=== PATIENT | female | born 1950 | race African-American/Black ===

== ENCOUNTER 2016-12-12 10:17 | Emergency (ER) | payer OTHER ==
[~2016-12-12] VITALS: Ht 167.6 cm; Wt 73.0 kg
[~2016-12-12 10:17] MED LIST: MOBIC7.5 M1 PO; TYLENOL WITH C1 EACH PO
[2016-12-12] MEDS ORDERED: RIFAMPIN300 M1 PO (10:58)
--- NOTE | 2016-12-12 12:22 | ED UPPER/LOWER EXTREMITY COMPL ---
See Addendum History of Present Illness General Chief Complaint: General Adult Stated Complaint: SENT BY [facility] FOR EVAL Source: patient, old records Exam Limitations: no limitations Vital Signs & Intake/Output Vital Signs & Intake/Output Vital Signs Date Time Temp Pulse Resp B/P Pulse O2 O2 Flow FiO2 Ox Delivery Rate 12/12 1339 97.1 65 16 125/73 97 Room Air 12/12 1026 97.1 81 14 122/75 98 Room Air Allergies Coded Allergies: No Known Allergies (10/06/16) Reconcile Medications Ibuprofen 600 MG TABLET 1 TAB PO TID PRN pain/inflammation with food Rifampin 300 MG CAPSULE 2 CAP PO DAILY UNKNOWN (Reported) Triage Note: 65 Y/O FEMALE SENT BY [facility] FOR EVAL OF L KNEE SWELLING. PT STATES SHE HAS ARTHRITIS AND THIS IS THE SECOND TIME SHE HAS BEEN EVAL'D FOR SAME. ACCORDING TO NOTE FROM [facility], "PLEASE ASPIRATE LEFT KNEE FOR C + S AND TB CULTURES ... PT ON RIFAMPIN FOR LATENT TB" (NOTE PLACED WITH CHART). PT STATES SHE HAS HAD PAIN AND SWELLING X WEEKS Triage Nurses Notes Reviewed? yes HPI: 65-year-old female sent in from the [facility] after seeing the "arthritis doctor" for aspiration of the left knee. She is having left knee pain for many months, she has known history of osteoarthritis, I have seen her in the past for this as well he reviewed her previous records. In October she was seen here twice, first time today and x-ray which revealed the os to arthritis in place anti-inflammatory medication second time she was seen by me on October 12 and I aspirated her knee and give her intra-articular cortisone injection of Kenalog. She states that she felt very well for approximately 3 weeks and the pain and swelling started to return. 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 She was seen today by the [facility] and they sent her over here for a repeat knee aspiration, a message from them in the chart states that they wanted a TB culture, AFB, cell count. 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 Patient is having aching pain which is moderate, it is related to activity. She has minimal pain at rest. She denies any fever or flulike illness. There is no recent trauma to the knee. (JOSE PIERRE) Past History Travel History Traveled to [place] past 21 day No Medical History Any Pertinent Medical History? see below for history Neurological: NONE EENT: NONE Cardiovascular: ? 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 No (JOSE PIERRE) Review of Systems Review of Systems Constitutional: Reports: see HPI. EENTM: Reports: no symptoms. Respiratory: Reports: no symptoms. Cardiovascular: Reports: no symptoms. Gastrointestinal/Abdominal: Reports: no symptoms. Genitourinary: Reports: no symptoms. Musculoskeletal: Reports: see HPI. Skin: Reports: no symptoms. Neurological/Psychological: Reports: no symptoms. Hematologic/Endocrine: Reports: no symptoms. Immunological: Reports: no symptoms. All Other Systems: Reviewed and Negative (JOSE PIERRE) Physical Exam Physical Exam General Appearance: well developed/nourished Comments: Well-developed well-nourished no apparent distress. HEENT: Atraumatic, extraocular motion intact Neck: Supple, no lymphadenopathy Back: Nontender Respiratory: No respiratory distress Extremities: No edema, full range of motion Neuro: Alert and oriented x3 Psych: Mood affect normal, normal memory normal judgment. Skin: Warm and dry, no rash on exposed skin Left knee, moderate joint effusion, no warmth no erythema. Mild global tenderness. Range of motion is full with pain on full flexion. No skin surface changes. No instability. (JOSE PIERRE) Progress Differential Diagnosis: cellulitis, fracture, gout, septic arthritis Plan of Care: Orders Procedure Date/time Status Regular Diet 12/12 D Active CULTURE,BODY FLUID 12/12 1119 Active AFB WITH SMEAR 12/12 1119 Active SYNOVIAL FLUID CELL COUNT 12/12 1119 Complete Laboratory Tests 12/12/16 1156: Lymphocytes 43, % Normal PMNs 22, Fluid WBC 529 H, Fld Mesothelial Cells , Fld Total RBCs Counted 99 H Microbiology 12/12 1156 BODY FLUID: AFB Culture with PCR Identification - RECD 12/12 1156 BODY FLUID: AFB Smear Concentration - RECD 12/12 1156 BODY FLUID: Body Fluid Culture - RECD 12/12 1156 BODY FLUID: Gram Stain - RECD Comments: Reviewed results of the aspirate with patient. I do not feel as though there is an infection, her symptoms are typical of osteoarthritis. She has an appointment in 1 week's time to follow-up with orthopedist at [facility] to review the results of her cultures. (JOSE PIERRE) Departure Departure Disposition: HOME OR SELF CARE Condition: Stable Clinical Impression Primary Impression: Arthritis of knee, left Secondary Impressions: Knee effusion, left Referrals: TRISHA ROOT APRN (PCP/Family) Additional Instructions: take motrin for your knee pain and inflammation. rest, ice, tom wrap follow up with your orthopedist in 1 week as scheduled. Departure Forms: Customer Survey General Discharge Information Prescriptions: Current Visit Scripts Ibuprofen 1 TAB PO TID PRN pain/inflammation #30 TAB with food (JOSE PIERRE) PA/MATCH MARKER Co-Sign Statement Statement: ED Attending supervision documentation- [] I saw and evaluated the patient. I have also reviewed all the pertinent lab results and diagnostic results. I agree with the findings and the plan of care as documented in the PA's/MATCH MARKER's documentation. [X] I have reviewed the ED Record and agree with the PA's/MATCH MARKER's documentation. [] Additions or exceptions (if any) to the PAs/MATCH MARKER's note and plan are summarized below: [] (SHANIKA MATTSON DO) Procedures Comments Comments: Verbal consent was obtained, left knee was prepped and draped in a sterile fashion, ultrasound guidance was used for direct visualization. 3 mL of 1% plain lidocaine was instilled in the left superior lateral portal region for anesthetic purposes. An 18-gauge needle was then used to enter the suprapatellar pouch and under direct visualization and with ultrasound knee aspiration was performed. Approximately 35 mL of straw-colored clear fluid was aspirated. Patient tolerated well without complications. This was sent to the lab for above-mentioned testing. Patient tolerated the procedure well without complications. A Band-Aid and Tom bandage was then applied to the left knee. (JOSE PIERRE)
[2016-12-12 13:39] VITALS: BP 125/73
[2016-12-12] MEDS ORDERED: IBUPROFEN600 M1 PO (14:09)
== END 2016-12-12 14:13 ==
LOC: ERH 10:17
DX: M17.9 Osteoarthritis of knee, unspecified (principal); M25.462 Effusion, left knee
CPT/HCPCS: 87075